=== PATIENT | female | born 1995 | race Caucasian/White ===

== ENCOUNTER 2018-04-11 15:51 | Outpatient (CLI) | payer OTHER | END 2018-04-11 19:00 | disposition left against medical advice (07) | LOC: OBT 15:51 → L-D 15:52 → OBT 19:00 | DX: Z53.21 Procedure and treatment not carried out due to patient leaving prior to being seen by health care provider (principal) | CPT/HCPCS: 76818 ==

== ENCOUNTER 2018-06-22 16:09 | Outpatient (CLI) | payer OTHER ==
[2018-06-22] MEDS ORDERED: OXYTOCIN 30 UNITS/LR 500 ML IV (19:30)
[2018-06-22] MEDS ORDERED: CEFAZOLIN 2 GM/50 ML (PMX) 50 ML IV (19:30)
[2018-06-22] MEDS ORDERED: CARBOPROST 250 MCG INJ IM (19:30)
[2018-06-22] MEDS ORDERED: METHYLERGONOVINE 0.2 MG INJ IM (19:30)
[2018-06-22] MEDS ORDERED: MISOPROSTOL 200 MCG TAB PR (19:30)
[2018-06-22 20:13] LABS: ADD MAN DIFF? NO
[2018-06-22 20:16] LABS: BASOPHILS % 0.2 % (0.0-2.0); EOSINOPHILS # 0.1 10^3/ul (0.0-0.5); EOSINOPHILS % 0.6 % (0.0-7.0); HEMATOCRIT 33.4 % (37.0-47.0); HEMOGLOBIN 11.5 g/dl (12.0-16.0); LYMPHOCYTES # 2.1 10^3/ul (0.8-2.9); LYMPHOCYTES % 22.9 % (15.0-51.0); MEAN CORPUSCULAR HEMOGLOBIN 32.1 pg (29.0-33.0); MEAN CORPUSCULAR HGB CONC 34.4 g/dl (32.0-37.0); MEAN CORPUSCULAR VOLUME 93.3 fl (82.0-101.0); MEAN PLATELET VOLUME 10.6 fl (7.4-10.4); MONOCYTE # 0.5 10^3/ul (0.3-0.9); MONOCYTES % 5.4 % (0.0-11.0); NEUTROPHIL # 6.4 10^3/ul (1.6-7.5); NEUTROPHILS % 70.6 % (39.0-77.0); PLATELET COUNT 209 10^3/UL (140-415); RED BLOOD COUNT 3.58 10^6/ul (4.20-5.40); RED CELL DISTRIBUTION WIDTH 13.9 % (11.5-14.5)
[2018-06-22] MEDS: LACTATED RINGER'S 1,000 ML IV (20:28)
[2018-06-22] MEDS ORDERED: ALBUTEROL 0.083% (NEB) 2.5 MG/3 ML AMP HHN (20:30)
[2018-06-22] MEDS ORDERED: METOCLOPRAMIDE 10 MG INJ IV (20:30)
[2018-06-22] MEDS ORDERED: ONDANSETRON 4 MG INJ IV (20:30)
[2018-06-22] MEDS ORDERED: DIPHENHYDRAMINE 50 MG INJ IV (20:30)
[2018-06-22] MEDS ORDERED: HYDROmorphONE 1 MG/5 ML IV SYRINGE IV ×3 (20:30)
[2018-06-22] MEDS ORDERED: FENTAnyl 50 MCG/ML VIAL IV ×2 (20:30)
[2018-06-22] MEDS ORDERED: NALOXONE (0.4 MG/ML) INJ IV (20:30)
[2018-06-22 20:36] LABS: INR 0.85; PARTIAL THROMBOPLASTIN TIME 26.3 Sec (25.0-35.0); PROTIME 11.7 Sec (11.9-14.9); PT RATIO 0.9
[2018-06-23 16:09] LABS: RAPID PLASMA REAGIN NONREACTIVE (NR)
== END 2018-06-22 20:30 | disposition home or self-care (01) ==
LOC: OBT 16:09 → L-D 16:09 → OBT 19:12 → L-D 19:12
DX: O62.9 Abnormality of forces of labor, unspecified (principal); O34.219 Maternal care for unspecified type scar from previous cesarean delivery; Z3A.38 38 weeks gestation of pregnancy
CPT/HCPCS: 36415; 76818; 85025; 85610; 85730; 86592; 86850; 86900; 86901

== ENCOUNTER 2018-06-23 05:05 | Inpatient (IN) | payer OTHER ==
[2018-06-23] MEDS: LACTATED RINGER'S 1,000 ML IV ×4 (05:20→19:27)
[2018-06-23] MEDS ORDERED: CEFAZOLIN 2 GM/50 ML (PMX) 50 ML IVPB (06:30)
[2018-06-23] MEDS ORDERED: MISOPROSTOL 200 MCG TAB PR ×2 (06:30→14:00)
[2018-06-23] MEDS ORDERED: CARBOPROST 250 MCG INJ IM ×2 (06:30→14:00)
[2018-06-23] MEDS ORDERED: METHYLERGONOVINE 0.2 MG INJ IM ×2 (06:30→14:00)
[2018-06-23] MEDS ORDERED: LIDOCAINE 2% (SDV) 5 ML INJ (07:00)
[2018-06-23] MEDS ORDERED: SUCCINYLCHOLINE CHLORIDE 100 MG/5 ML SYG IV (07:00)
[2018-06-23] MEDS ORDERED: ROCURONIUM 50 MG INJ (07:00)
[2018-06-23] MEDS ORDERED: EPHEDrine SULFATE 50 MG/5 ML SYG (07:00)
[2018-06-23] MEDS ORDERED: PROPOFOL 200 MG INJ (07:00)
[2018-06-23] MEDS ORDERED: METHYLERGONOVINE 0.2 MG INJ (07:00)
[2018-06-23 07:11] LABS: HEPATITIS B SURFACE ANTIGEN NEGATIVE (NEGATIVE)
[2018-06-23] MEDS ORDERED: BUPIVACAINE 0.75%/DEXT (SPINAL) 2 ML INJ (07:49)
[2018-06-23] MEDS ORDERED: FENTAnyl 50 MCG/ML VIAL (07:50)
[2018-06-23] MEDS ORDERED: morphine SULFATE/PF (10 MG/10 ML) INJ (07:50)
[2018-06-23] MEDS ORDERED: HYDROmorphONE 2 MG/ML SYG (09:16)
[2018-06-23] MEDS ORDERED: DEXAMETHASONE 4 MG/ML 1 ML INJ (09:28)
[2018-06-23] MEDS ORDERED: ONDANSETRON 4 MG INJ (09:30)
[2018-06-23] MEDS ORDERED: SUGAMMADEX SODIUM 200 MG/2 ML VIAL IV (09:48)
[2018-06-23] MEDS ORDERED: LABETALOL HCL 20MG INJ IV (11:00)
[2018-06-23] MEDS ORDERED: ONDANSETRON 4 MG INJ IV ×3 (11:00→14:00)
[2018-06-23] MEDS ORDERED: HYDROmorphONE 1 MG/5 ML IV SYRINGE IV ×3 (11:00)
[2018-06-23] MEDS ORDERED: MEPERIDINE 25 MG INJ IV (11:00)
[2018-06-23] MEDS ORDERED: MIDAZOLAM 1 MG/ML 2 ML INJ IV (11:00)
[2018-06-23] MEDS ORDERED: DIPHENHYDRAMINE 50 MG INJ IV ×3 (11:00→14:00)
[2018-06-23] MEDS ORDERED: KETOROLAC 30 MG INJ IV (11:00)
[2018-06-23] MEDS ORDERED: METOCLOPRAMIDE 10 MG INJ IV (11:00)
[2018-06-23] MEDS ORDERED: hydrALAzine 20 MG INJ IV (11:00)
[2018-06-23] MEDS ORDERED: OXYCODONE/ACETAMINOPHEN (5/325) TAB PO ×4 (11:00→14:00)
[2018-06-23] MEDS ORDERED: EPHEDrine SULFATE 50 MG/5 ML SYG IV (11:00)
[2018-06-23] MEDS ORDERED: FENTAnyl 50 MCG/ML VIAL IV ×3 (11:00)
[2018-06-23] MEDS: OXYTOCIN 30 UNITS/LR 500 ML IV ×2 (11:03→15:36)
[2018-06-23] MEDS: KETOROLAC 30 MG INJ IV ×2 (11:18→21:06)
[2018-06-23] MEDS ORDERED: ZOLPIDEM 5 MG TAB PO ×2 (11:30→14:00)
[2018-06-23] MEDS ORDERED: NALOXONE (0.4 MG/ML) INJ IV (11:30)
[2018-06-23] MEDS: HYDROmorphONE 0.2 MG/ML PCA IV (11:36)
[2018-06-23] MEDS ORDERED: LACTATED RINGER'S 1,000 ML IV (13:50)
[2018-06-23] MEDS ORDERED: LANOLIN 7 GM TUBE TOP (14:00)
[2018-06-23] MEDS: SENNA/DOCUSATE NA (8.6MG/50MG) TAB PO (21:00)
[2018-06-24] MEDS: LACTATED RINGER'S 1,000 ML IV (02:36)
[2018-06-24] MEDS: KETOROLAC 30 MG INJ IV ×2 (06:08→13:14)
[2018-06-24] MEDS: SENNA/DOCUSATE NA (8.6MG/50MG) TAB PO ×2 (09:00→21:09)
[2018-06-24 09:42] LABS: ADD MAN DIFF? NO
[2018-06-24 09:45] LABS: BASOPHILS % 0.1 % (0.0-2.0); EOSINOPHILS % 0.3 % (0.0-7.0); HEMATOCRIT 29.3 % (37.0-47.0); HEMOGLOBIN 9.9 g/dl (12.0-16.0); LYMPHOCYTES # 2.4 10^3/ul (0.8-2.9); LYMPHOCYTES % 25.7 % (15.0-51.0); MEAN CORPUSCULAR HEMOGLOBIN 32.1 pg (29.0-33.0); MEAN CORPUSCULAR HGB CONC 33.8 g/dl (32.0-37.0); MEAN CORPUSCULAR VOLUME 95.1 fl (82.0-101.0); MEAN PLATELET VOLUME 10.5 fl (7.4-10.4); MONOCYTE # 0.5 10^3/ul (0.3-0.9); MONOCYTES % 5.9 % (0.0-11.0); NEUTROPHIL # 6.2 10^3/ul (1.6-7.5); NEUTROPHILS % 67.7 % (39.0-77.0); PLATELET COUNT 181 10^3/UL (140-415); RED BLOOD COUNT 3.08 10^6/ul (4.20-5.40)
[2018-06-24 09:45] LABS: WHITE BLOOD COUNT 9.2 10^3/ul (4.8-10.8)
[2018-06-24] MEDS: IBUPROFEN 600 MG TAB PO ×3 (12:00→23:53)
[2018-06-24] MEDS: OXYCODONE/ACETAMINOPHEN (5/325) TAB PO ×2 (17:14→21:09)
[2018-06-25] MEDS: OXYCODONE/ACETAMINOPHEN (5/325) TAB PO ×4 (01:59→21:39)
[2018-06-25] MEDS: IBUPROFEN 600 MG TAB PO ×4 (05:32→23:30)
[2018-06-25] MEDS: LACTATED RINGER'S 1,000 ML IV ×4 (08:25→22:11)
[2018-06-25] MEDS: FERROUS GLUCONATE (EC) 325 MG TAB PO (09:14)
[2018-06-25] MEDS: SENNA/DOCUSATE NA (8.6MG/50MG) TAB PO ×2 (09:15→21:38)
[2018-06-26] MEDS: OXYCODONE/ACETAMINOPHEN (5/325) TAB PO ×2 (05:28→10:23)
[2018-06-26] MEDS: IBUPROFEN 600 MG TAB PO ×2 (05:28→12:09)
[2018-06-26] MEDS: LACTATED RINGER'S 1,000 ML IV (06:11)
[2018-06-26] MEDS: SENNA/DOCUSATE NA (8.6MG/50MG) TAB PO (08:26)
[2018-06-26] MEDS: FERROUS GLUCONATE (EC) 325 MG TAB PO (08:59)
[2018-06-26] MEDS: DIPHTH/TET/ACEL PERTUSS (ADULT) 0.5 ML VIAL IM* (09:03)
[2018-06-26 19:37] LABS: RAPID PLASMA REAGIN NONREACTIVE (NR)
== END 2018-06-26 16:18 | disposition home or self-care (01) | DRG 766 ==
LOC: L-D 05:05 → PP1 12:53
PROVIDERS: Obstetrics & Gynecology
PROC: 10D00Z1 Extraction of Products of Conception, Low, Open Approach (ICD-10-PCS; principal; 2018-06-23)
DX: O34.211 Maternal care for low transverse scar from previous cesarean delivery (principal); Z3A.39 39 weeks gestation of pregnancy; Z37.0 Single live birth
CPT/HCPCS: 85025; 86592; 87340; 99464